=== PATIENT | female | born 1940 | race Caucasian/White ===

== ENCOUNTER 2018-12-30 14:42 | Inpatient (IN) | payer MEDICARE, BC ==
[~2018-12-30] VITALS: Ht 158.8 cm; Wt 44.5 kg
[2018-12-30] MEDS ORDERED: Z GUARD REMEDY PASTE 57 GM TUBE TOP PRN (17:15)
[2018-12-30] MEDS ORDERED: LEVO75TA7 PO (17:18)
[2018-12-30] MEDS ORDERED: HYDR-3980 PO (17:18)
[2018-12-30] MEDS ORDERED: OXYB10TA PO (17:18)
[2018-12-30] MEDS ORDERED: SIMV40TA5 PO (17:18)
[2018-12-30] MEDS ORDERED: LEVO50TA8 PO (17:18)
[2018-12-30] MEDS ORDERED: BENA20TA9 PO (17:18)
--- NOTE | 2018-12-30 17:23 | NUR ---
Patient new admission came around 4pm via ambulance in [facility] with 2 EMT in stable condition. Alert and oriented x3-4 VS BP- 109/69 P-81 R-18. Followed by . SPO2- 100% T- 98.5. DX: S/P left hip fracture left hip hemiartroplasty by MD Pantoja. skin intact. no IV line noted. On regular soft diet. MD Porter and MD Rich made aware. Sustained the fracture in fall. Patient verbalize while chasing her dog. On weight bearing as tolerated. Left hip incision with marcos covered with surgical dressing. not in distress. will continue monitor Addendum: 12/30/18 at 1823 by CARON MONTGOMERY RN RN As per further skin assessment, left hip blister and left sacrum excoriation noted. For wound consult and air mattress for skin intergrity. will continue monitor
[2018-12-30 19:49] VITALS: BP 118/63
[2018-12-30] MEDS ORDERED: ENOX40DI SQ (22:06)
[2018-12-30] MEDS ORDERED: MAGN400O6 PO (22:06)
[2018-12-30] MEDS ORDERED: ZOLP5TAB8 PO (22:07)
[2018-12-30] MEDS ORDERED: NAPH1POW3 PO (22:07)
[2018-12-30] MEDS ORDERED: OXYCODONE HCL 5 MG TABLET PO PRN (22:45)
--- NOTE | 2018-12-30 22:48 | NUR ---
Received pt in bed, AAO x 4 with at bedside. No acute distress noted. Verbally responsive and able to make needs known. Awaiting MD for med recon. Denies pain or discomfort at this time. All safety measures and fall precautions maintained. Call light and all personal belongings within reach. Will continue to monitor.
[2018-12-30] MEDS ORDERED: ZOLPIDEM 5 MG TABLET PO PRN (23:30)
[2018-12-31] MEDS: HYDROCODONE/APAP 10-325 MG TABLET PO PRN ×3 (00:09→14:16)
[2018-12-31 05:11] VITALS: BP 109/52
[2018-12-31] MEDS ORDERED: NEUTRA PHOS PACKET PO SCH ×2 (06:00→14:00)
[2018-12-31] MEDS: LEVOTHYROXINE SODIUM 75 MCG TABLET PO SCH (07:17)
[2018-12-31 07:35] LABS: BASOPHILS % (AUTO) 0.6 % (0.0-2.0); EOSINOPHILS # (AUTO) 0.2 K/uL (0.0-0.7); EOSINOPHILS % (AUTO) 3.9 % (0.0-7.0); HEMATOCRIT 29.1 % (31.2-41.9); HEMOGLOBIN 9.9 g/dL (10.9-14.3); LYMPHOCYTES # (AUTO) 1.2 K/uL (20.0-40.0); LYMPHOCYTES % (AUTO) 19.8 % (20.5-51.5); MEAN CORPUSCULAR HGB CONC 34 g/dL (32.3-35.6); MEAN CORPUSCULAR VOLUME 91.7 fL (75.5-95.3); MONOCYTES # (AUTO) 0.6 K/uL (2.0-10.0); MONOCYTES % (AUTO) 10.8 % (0.0-11.0); NEUTROPHILS # (AUTO) 3.8 K/uL (1.8-8.9); NEUTROPHILS % (AUTO) 64.9 % (38.5-71.5); PLATELET COUNT (AUTO) 182 K/uL (179-408); RED BLOOD CELL COUNT(AUTO) 3.18 MIL/uL (3.63-4.92); WHITE BLOOD COUNT (AUTO) 5.9 K/uL (3.8-11.8)
[2018-12-31 07:50] LABS: CARBON DIOXIDE 31 mmol/L (21-32); CHLORIDE 104 mmol/L (98-107); CHOLESTEROL 63 mg/dL (<200); CREATININE 0.5 mg/dL (0.6-1.3); GLUCOSE 89 mg/dL (74-106); HDL CHOLESTEROL 28 mg/dL (40-60); MAGNESIUM 1.9 mg/dL (1.8-2.4); PHOSPHOROUS 2.3 mg/dL (2.5-4.9); POTASSIUM 3.6 mmol/L (3.5-5.1); TRIGLYCERIDES 67 MG/DL (30-150); UREA NITROGEN, BLOOD 10 mg/dL (7-18)
[2018-12-31 08:05] VITALS: BP 132/63
[2018-12-31] MEDS ORDERED: LEVOTHYROXINE SODIUM 50 MCG TABLET PO SCH (09:00)
[2018-12-31] MEDS ORDERED: ENOXAPARIN SODIUM 40 MG/0.4 ML DISP.SYRIN SQ SCH (09:00)
[2018-12-31] MEDS ORDERED: BENAZEPRIL HCL 20 MG TABLET PO SCH (09:00)
[2018-12-31] MEDS: BENAZEPRIL HCL 10 MG TABLET PO SCH (09:20)
[2018-12-31] MEDS ORDERED: Medication Not On Formulary EA (Oxybutynin Chloride (Oxybutynin Chloride Er) 10 MG) PO SCH (18:00)
[2018-12-31] MEDS: OXYBUTYNIN XL 5 MG TABSR PO SCH (18:26)
[2018-12-31] MEDS: MAGNESIUM HYDROXIDE 30 ML LIQUID UDC PO PRN (18:31)
[2018-12-31 20:25] VITALS: BP 127/63
[2018-12-31] MEDS: ONDANSETRON HCL 4 MG TABLET PO PRN (20:56)
[2018-12-31] MEDS ORDERED: SIMVASTATIN 40 MG TABLET PO SCH (21:00)
--- NOTE | 2018-12-31 21:31 | NUR ---
Received pt resting in bed and requested to go to the bathroom. Assisted to the bathroom using walker, unsteady but tolerated. AAO x4. No acute distress noted. No c/o pain or discomfort. Air mattress in place. Pt complained of nausea, no emesis present. VSS. Notified Dr. Bhardwaj, new order for Zofran 4mg PO Q6H PRN for N/V. Carried out new order. Safety measures maintained. Call light and personal belongings within reach. Will continue to monitor.
[2019-01-01 04:00] VITALS: BP 137/59
[2019-01-01] MEDS: LEVOTHYROXINE SODIUM 50 MCG TABLET PO SCH (06:07)
[2019-01-01 08:00] VITALS: BP 135/80
[2019-01-01] MEDS ORDERED: LEVOTHYROXINE SODIUM 75 MCG TABLET PO SCH (09:00)
[2019-01-01] MEDS: BENAZEPRIL HCL 10 MG TABLET PO SCH (09:33)
--- NOTE | 2019-01-01 10:04 | NUR ---
Received pt in bed. A/Ox4. No acute distress noted. Denies CP or SOB. All due medications given as ordered and tolerated well. On air mattress for skin management. Provided prune juice to pt. No episode of N/V this AM. Safety measures maintained. Call light and all frequently used items in place. Will continue to monitor accordingly.
--- NOTE | 2019-01-01 11:27 | NUR ---
WOUND CARE CONSULT: PT PRESENTS WITH RESOLVED TAPE BLISTERS PROXIMAL TO SURGICAL DRESSING LEFT HIP, PRESENT ON ADMISSION. PT IS AMBULATORY WITH ASSISTANCE AND WALKER AND IS CONTINENT. ALL SKIN PROTECTION RECOMMENDATIONS DISCUSSED WITH NURSING STAFF. WILL SEE PRN. Addendum: 01/01/19 at 1128 by COLT GARZON RN Amended: Links added.
[2019-01-01] MEDS: MAGNESIUM HYDROXIDE 30 ML LIQUID UDC PO PRN (13:25)
[2019-01-01] MEDS: HYDROCODONE/APAP 10-325 MG TABLET PO PRN ×2 (13:25→21:46)
[2019-01-01 16:00] VITALS: BP 116/55
[2019-01-01] MEDS: OXYBUTYNIN XL 5 MG TABSR PO SCH (17:03)
[2019-01-01] MEDS: RIVAROXABAN 10 MG TABLET PO SCH (17:14)
--- NOTE | 2019-01-01 19:32 | NUR ---
End of shift: All due medications administered as ordered and tolerated well. No new skin condition noted. Kept pt. clean and dry. Skin care rendered. On air mattress and SCD pump. Call light and all frequently used items within pt. reach. Will endorse to oncoming shift accordingly.
--- NOTE | 2019-01-01 19:40 | NUR ---
Patient received in bed. AAO x4. Able to make needs known. No sign of acute distress or SOB was noted. On room air. No Complain of pain at this time. Abductor pillow and DVT pump in place. Patient assessed. Skin redness on both heels and a blister on left food were observed. Pictures taken and put in the chart. Applied Mepilex on left foot blister and redness. Safety measures maintained. Fall prevention observed. Bed in low position, brake and alarm on, side rails up x2. Call light and personal belongings within reach. Will continue to monitor.
[2019-01-01 20:00] VITALS: BP 126/54
[2019-01-02] MEDS: LEVOTHYROXINE SODIUM 75 MCG TABLET PO SCH (06:08)
[2019-01-02 06:23] VITALS: BP 118/53
--- NOTE | 2019-01-02 07:44 | NUR ---
End of the shift note Patient was stable throughout the shift and had a good sleep. No sign of acute distress or SOB noted. No Complain of pain. patient assessment done. Assisted to the restroom for using bedside commode. Surgical dressing changed. Medications given as ordered and well tolerated. Keep her clean and dry. Safety measures maintained. All needs anticipated promptly. Fall precaution maintained. Bed in low position, brake and alarm on, side rails up x2. Call light and personal belongings within reach. Continue to monitor and will endorse to the day shift nurse accordingly.
[2019-01-02 08:00] VITALS: BP 124/67
[2019-01-02] MEDS: BENAZEPRIL HCL 10 MG TABLET PO SCH (08:42)
[2019-01-02] MEDS: HYDROCODONE/APAP 10-325 MG TABLET PO PRN (08:43)
--- NOTE | 2019-01-02 09:34 | NUR ---
Received pt in bed. A/Ox4. No acute distress noted. Denies CP or SOB. All due medications given as ordered and tolerated well. On air mattress for skin management. Provided prune juice to pt. Skin care rendered. All pt need attended and met. Pt. with X1 BM this AM. Safety measures maintained. Call light and all frequently used items in place. Will continue to monitor accordingly.
[2019-01-02] MEDS: MAGNESIUM HYDROXIDE 30 ML LIQUID UDC PO PRN (11:57)
--- NOTE | 2019-01-02 12:42 | NUR ---
INTERDISCIPLINARY TEAM CONFERENCE
[2019-01-02 16:33] VITALS: BP 104/61
[2019-01-02] MEDS: OXYBUTYNIN XL 5 MG TABSR PO SCH (17:02)
[2019-01-02] MEDS: RIVAROXABAN 10 MG TABLET PO SCH (17:11)
--- NOTE | 2019-01-02 18:49 | NUR ---
End of shift: All due medications administered as ordered and tolerated well. No new skin condition noted. Kept pt. clean and dry. Encouraged PO fluid intake. Skin care rendered. Participated with PT/OT and tolerated TX well. On air mattress and SCD pump. X2 small BM this shift. at bedside for emotional support.Call light and all frequently used items within pt. reach. Will endorse to oncoming shift accordingly.
[2019-01-02 19:49] VITALS: BP 129/71
--- NOTE | 2019-01-02 20:30 | NUR ---
Received pt in bed, AAO x 4 watching television. No acute distress noted. Verbally responsive and able to make needs known. Denies pain or discomfort at this time. All safety measures and fall precautions maintained. Call light and all personal belongings within reach. Will continue to monitor.
[2019-01-03] MEDS: HYDROCODONE/APAP 10-325 MG TABLET PO PRN ×2 (00:38→08:09)
[2019-01-03 04:39] VITALS: BP 109/62
[2019-01-03] MEDS: LEVOTHYROXINE SODIUM 50 MCG TABLET PO SCH (06:08)
[2019-01-03 07:45] VITALS: BP 117/55
[2019-01-03] MEDS: BENAZEPRIL HCL 10 MG TABLET PO SCH (08:09)
--- NOTE | 2019-01-03 08:42 | NUR ---
Received pt in bed. A/OX4. No acute distress noted. Denies CP or SOB. All due medications given as ordered and tolerated well. On air mattress for skin management. Provided prune juice to pt. Skin care rendered. All pt need attended and met. Kept pt. clean and dry. Safety measures maintained. Call light and all frequently used items in place. Will continue to monitor accordingly.
[2019-01-03] MEDS: MAGNESIUM HYDROXIDE 30 ML LIQUID UDC PO PRN (12:13)
--- NOTE | 2019-01-03 13:36 | NUR ---
INTERDISCIPLINARY TEAM CONFERENCE
[2019-01-03 16:43] VITALS: BP 113/56
[2019-01-03] MEDS: OXYBUTYNIN XL 5 MG TABSR PO SCH (17:32)
[2019-01-03] MEDS: RIVAROXABAN 10 MG TABLET PO SCH (17:33)
--- NOTE | 2019-01-03 18:20 | NUR ---
End of shift: All due medications administered as ordered and tolerated well. No new skin condition noted. Kept pt. clean and dry. Encouraged PO fluid intake. Skin care rendered. Participated with PT/OT and tolerated TX well. On air mattress and SCD pump. X2 small and large BM this shift. and DTR at bedside for emotional support. Call light and all frequently used items within pt. reach. Will endorse to oncoming shift accordingly.
[2019-01-03 19:45] VITALS: BP 104/41
--- NOTE | 2019-01-03 20:26 | NUR ---
Received pt resting in bed. AAO x4. at bedside. No acute distress noted. No c/o pain or discomfort. On air mattress and SCD pump. Abductor pillow in place. Both heels elevated. Turned and repositioned, will continue to do so q2h. Safety measures maintained. Call light and personal belongings within reach. Will continue to monitor.
[2019-01-04 04:00] VITALS: BP 126/47
[2019-01-04] MEDS: LEVOTHYROXINE SODIUM 75 MCG TABLET PO SCH (06:30)
--- NOTE | 2019-01-04 06:44 | NUR ---
Pt slept intermittently at night. Assisted to the bedside commode x5 t/o the shift, had 2 small BM. VSS. All needs attended to promptly. Will endorse to oncoming shift. Continue to monitor.
[2019-01-04 08:44] VITALS: BP 108/55
[2019-01-04] MEDS: BENAZEPRIL HCL 10 MG TABLET PO SCH (08:45)
[2019-01-04] MEDS: HYDROCODONE/APAP 10-325 MG TABLET PO PRN ×2 (10:50→20:13)
[2019-01-04] MEDS: OXYBUTYNIN XL 5 MG TABSR PO SCH (17:18)
[2019-01-04] MEDS: RIVAROXABAN 10 MG TABLET PO SCH (17:20)
[2019-01-04 19:20] VITALS: BP 122/56
--- NOTE | 2019-01-04 19:20 | NUR ---
Received pt resting in bed. Alert and oriented x 4. No SOB or distress noted at this time. Pain noted upon assessment. Will medicate. Patient resting in bed watch TV. Assisted with evening ADLs. Safety measures maintained. Side rails up bilaterally. Call light and personal belongings within reach. Will continue to monitor.
[2019-01-05 05:00] VITALS: BP 136/47
[2019-01-05] MEDS: LEVOTHYROXINE SODIUM 50 MCG TABLET PO SCH (06:00)
--- NOTE | 2019-01-05 06:38 | NUR ---
Patient slept well during shift. No C/O distress or SOB on shift. All due medications given-tolerated well. Assisted patient to bathroom x3. SCD pumps in place for DVT prophylaxis. Side rails up bilaterally for safety. Call light and frequently used items within reach. Will endorse to oncoming shift accordingly.
[2019-01-05] MEDS: BENAZEPRIL HCL 10 MG TABLET PO SCH (08:04)
[2019-01-05 08:07] VITALS: BP 125/52
--- NOTE | 2019-01-05 08:27 | NUR ---
Received pt in bed. A/OX4. No acute distress noted. Denies CP or SOB. All due medications given as ordered and tolerated well. On air mattress for skin management. Skin care rendered. Lt. hip boarder gauze dressing C/D/I. All pt needs attended and met. Kept pt. clean and dry. Safety measures maintained. Call light and all frequently used items in place. Will continue to monitor accordingly.
[2019-01-05 08:28] LABS: BASOPHILS # (AUTO) 0.1 K/uL (0.0-8.0); BASOPHILS % (AUTO) 0.8 % (0.0-2.0); EOSINOPHILS # (AUTO) 0.2 K/uL (0.0-0.7); EOSINOPHILS % (AUTO) 2.7 % (0.0-7.0); HEMATOCRIT 28.7 % (31.2-41.9); HEMOGLOBIN 9.6 g/dL (10.9-14.3); MEAN CORPUSCULAR HEMOGLOBIN 31.1 uug (24.7-32.8); MEAN CORPUSCULAR HGB CONC 33 g/dL (32.3-35.6); MEAN CORPUSCULAR VOLUME 93.2 fL (75.5-95.3); MONOCYTES # (AUTO) 0.5 K/uL (2.0-10.0); MONOCYTES % (AUTO) 6.7 % (0.0-11.0); NEUTROPHILS # (AUTO) 5.6 K/uL (1.8-8.9); NEUTROPHILS % (AUTO) 75.8 % (38.5-71.5); PLATELET COUNT (AUTO) 317 K/uL (179-408); RED BLOOD CELL COUNT(AUTO) 3.08 MIL/uL (3.63-4.92); WHITE BLOOD COUNT (AUTO) 7.3 K/uL (3.8-11.8)
[2019-01-05 09:03] LABS: ALANINE AMINOTRANSFERASE 31 U/L (14-59); ALKALINE PHOSPHATASE 70 U/L (50-136); ASPARTATE AMINOTRANSFERASE 25 U/L (15-37); BILIRUBIN,TOTAL 0.5 mg/dL (0.2-1.0); CARBON DIOXIDE 32 mmol/L (21-32); CHLORIDE 105 mmol/L (98-107); CREATININE 0.5 mg/dL (0.6-1.3); GLUCOSE 101 mg/dL (74-106); MAGNESIUM 2.2 mg/dL (1.8-2.4); PHOSPHOROUS 2.6 mg/dL (2.5-4.9); POTASSIUM 3.8 mmol/L (3.5-5.1); TOTAL PROTEIN, SERUM 5.3 g/dL (6.4-8.2); UREA NITROGEN, BLOOD 9 mg/dL (7-18)
[2019-01-05 09:29] LABS: THYROID STIMULATING HORMONE 2.156 mIU/mL (0.358-3.740)
[2019-01-05] MEDS: HYDROCODONE/APAP 10-325 MG TABLET PO PRN ×2 (10:09→22:44)
[2019-01-05 16:16] VITALS: BP 115/51
[2019-01-05] MEDS: OXYBUTYNIN XL 5 MG TABSR PO SCH (17:03)
[2019-01-05] MEDS: RIVAROXABAN 10 MG TABLET PO SCH (17:04)
--- NOTE | 2019-01-05 18:39 | NUR ---
End of shift: All due medications administered as ordered and tolerated well. No new skin condition noted. Kept pt. clean and dry. Encouraged PO fluid intake. Skin care rendered. Participated with PT/OT and tolerated TX well. On air mattress and SCD pump. at bedside for emotional support. Call light and all frequently used items within pt. reach. Will endorse to oncoming shift accordingly.
[2019-01-05 19:42] VITALS: BP 108/59
--- NOTE | 2019-01-05 19:49 | NUR ---
Patient received in bed reading a book. Alert and oriented x 4. No SOB or distress noted at this time. No pain noted upon assessment. Assisted with evening ADLs. Side rails up bilaterally for safety. Call light and personal belongings within reach. Will continue to monitor.
[2019-01-05] MEDS: ACETAMINOPHEN 325 MG TABLET PO PRN (20:30)
[2019-01-06 05:18] VITALS: BP 132/55
[2019-01-06] MEDS: LEVOTHYROXINE SODIUM 75 MCG TABLET PO SCH (06:03)
--- NOTE | 2019-01-06 06:45 | NUR ---
No significant change overnight. Patient slept well during shift. All due medications given-tolerated well. Assisted patient to bathroom x2. SCD pumps in place for DVT prophylaxis. Side rails up bilaterally for safety. Call light and frequently used items within reach. Will endorse to oncoming shift accordingly.
[2019-01-06 08:00] VITALS: BP 128/40
[2019-01-06] MEDS: BENAZEPRIL HCL 10 MG TABLET PO SCH (08:06)
--- NOTE | 2019-01-06 09:12 | NUR ---
Received pt in bed. A/OX4. No acute distress noted. Denies CP or SOB. All due medications given as ordered and tolerated well. On air mattress for skin management. Skin care rendered. Lt. hip boarder gauze dressing C/D/I. Pt. wearing bilateral hearing aid. All pt needs attended and met. Kept pt. clean and dry. Safety measures maintained. Call light and all frequently used items in place. Will continue to monitor accordingly.
[2019-01-06] MEDS: OXYBUTYNIN XL 5 MG TABSR PO SCH (17:02)
[2019-01-06] MEDS: RIVAROXABAN 10 MG TABLET PO SCH (17:03)
[2019-01-06 17:04] VITALS: BP 142/63
[2019-01-06 18:23] VITALS: BP 130/68
--- NOTE | 2019-01-06 18:26 | NUR ---
End of shift: All due medications administered as ordered and tolerated well. No new skin condition noted. Kept pt. clean and dry. Pt. transferred to # [phone] per pt. request. Skin care rendered. Participated with PT/OT and tolerated TX well. On air mattress and SCD pump. Call light and all frequently used items within pt. reach. Will endorse to oncoming shift accordingly.
[2019-01-06 20:35] VITALS: BP 132/66
[2019-01-07 05:06] VITALS: BP 137/57
--- NOTE | 2019-01-07 05:22 | NUR ---
aaox4 continent of bowel and bladder. needs attended. VSS. denies any pain kept comfortable. will monitor patient. slept well. no acute distress noted. In good spirits.
[2019-01-07] MEDS: LEVOTHYROXINE SODIUM 50 MCG TABLET PO SCH (06:42)
[2019-01-07] MEDS: BENAZEPRIL HCL 10 MG TABLET PO SCH (08:08)
[2019-01-07] MEDS: HYDROCODONE/APAP 10-325 MG TABLET PO PRN (08:58)
[2019-01-07 09:48] VITALS: BP 128/67
--- NOTE | 2019-01-07 11:09 | NUR ---
Received pt in bed. A/OX4. No acute distress noted. Denies CP or SOB. All due medications given as ordered and tolerated well. On air mattress for skin management. Skin care rendered. All pt needs attended and met. Kept pt. clean and dry. Safety measures maintained. Call light and all frequently used items in place. Will continue to monitor accordingly.
[2019-01-07 16:28] VITALS: BP 111/59
[2019-01-07] MEDS: OXYBUTYNIN XL 5 MG TABSR PO SCH (17:01)
[2019-01-07] MEDS: RIVAROXABAN 10 MG TABLET PO SCH (17:02)
--- NOTE | 2019-01-07 18:10 | NUR ---
End of shift: All due medications administered as ordered and tolerated well. No new skin condition noted. Kept pt. clean and dry. Pt. showered today. Change lt. hip dressing PRN soiled. Participated with PT/OT and tolerated TX well. On air mattress and SCD pump. Call light and all frequently used items within pt. reach. Will endorse to oncoming shift accordingly.
[2019-01-07 19:30] VITALS: BP 106/64
--- NOTE | 2019-01-07 19:30 | NUR ---
Received pt resting in bed. Alert and oriented x 4. No SOB or pain noted at this time. Patient resting in bed watch TV. Safety measures maintained. Side rails up bilaterally. Call light and personal belongings within reach. Will continue to monitor.
[2019-01-08 05:17] VITALS: BP 117/64
[2019-01-08] MEDS: LEVOTHYROXINE SODIUM 75 MCG TABLET PO SCH (06:11)
--- NOTE | 2019-01-08 06:33 | NUR ---
No significant change overnight. Patient slept intermittently during shift. All due medications given-tolerated well. Assisted patient to bathroom x3. SCD pumps in place for DVT prophylaxis. Side rails up bilaterally for safety. Call light and frequently used items within reach. Will endorse to oncoming shift accordingly.
[2019-01-08 08:00] VITALS: BP 130/53
[2019-01-08] MEDS: BENAZEPRIL HCL 10 MG TABLET PO SCH (08:31)
[2019-01-08] MEDS: HYDROCODONE/APAP 10-325 MG TABLET PO PRN (08:32)
--- NOTE | 2019-01-08 09:49 | NUR ---
Patient noted sitting up in bed, complaints of pain in left hip, [place] given for pain, no signs of distress noted, call light in reach, bed locked and in lowest positon, took all AM medications, all needs met at this time
[2019-01-08 16:25] VITALS: BP 115/57
[2019-01-08] MEDS: OXYBUTYNIN XL 5 MG TABSR PO SCH (17:11)
[2019-01-08] MEDS: RIVAROXABAN 10 MG TABLET PO SCH (17:14)
--- NOTE | 2019-01-08 18:23 | NUR ---
No signs distress noted this shift, no changes noted, patient assisted to restroom at this time, no complaints of pain at this time
[2019-01-08 19:25] VITALS: BP 144/61
--- NOTE | 2019-01-08 21:11 | NUR ---
Patient recieved in bed talking to family member on the phone. Alert and oriented x 4. No SOB or pain noted at this time. SCD pump machine changed because it did not seem to be functioning. Safety measures maintained. Side rails up bilaterally. Call light and personal belongings within reach. Will continue to monitor.
[2019-01-09 04:45] VITALS: BP 135/52
[2019-01-09] MEDS: HYDROCODONE/APAP 10-325 MG TABLET PO PRN (06:05)
[2019-01-09] MEDS: LEVOTHYROXINE SODIUM 50 MCG TABLET PO SCH (06:05)
--- NOTE | 2019-01-09 06:38 | NUR ---
Patient slept intermittently during shift. All due medications given-tolerated well. [place] given for pain management. Assisted patient to bathroom x5. SCD pumps in place for DVT prophylaxis. Side rails up bilaterally for safety. Call light and frequently used items within reach. Will endorse to oncoming shift accordingly.
--- NOTE | 2019-01-09 07:59 | NUR ---
Patient noted sitting up in bed, no complaints of pain at this time, no signs of distress noted, call light in reach, bed locked and in lowest positon, took all AM medications, all needs met at this time
[2019-01-09 08:00] VITALS: BP 128/60
[2019-01-09] MEDS: BENAZEPRIL HCL 10 MG TABLET PO SCH (08:49)
[2019-01-09 16:00] VITALS: BP 109/61
[2019-01-09] MEDS: OXYBUTYNIN XL 5 MG TABSR PO SCH (17:15)
[2019-01-09] MEDS: RIVAROXABAN 10 MG TABLET PO SCH (17:18)
[2019-01-09 22:32] VITALS: BP 128/67
[2019-01-10] MEDS: LEVOTHYROXINE SODIUM 75 MCG TABLET PO SCH (06:20)
[2019-01-10 06:34] VITALS: BP 148/70
--- NOTE | 2019-01-10 06:50 | NUR ---
awake alert and oriented x4 OOB to the BR with walker. voiding well. BM noted this shift. needs attended. kept comfortable. no acute distress noted. will monitor patient. VSS. fall precautions maintained. siderails up for safety.
--- NOTE | 2019-01-10 07:15 | NUR ---
Received patient awake on bed, lying on a high lee's with No SOB or distress. Denies pain or any discomforts at this time. safety precautions initiated. Informed of the hourly rounding. call light and telephone within reach. Will continue to monitor.
[2019-01-10 08:00] VITALS: BP 101/68
[2019-01-10] MEDS: BENAZEPRIL HCL 10 MG TABLET PO SCH (08:30)
[2019-01-10] MEDS: HYDROCODONE/APAP 10-325 MG TABLET PO PRN (08:31)
--- NOTE | 2019-01-10 13:25 | NUR ---
INTERDISCIPLINARY TEAM CONFERENCE
[2019-01-10 15:04] VITALS: BP 109/64
--- NOTE | 2019-01-10 15:16 | NUR ---
Patient alert and oriented, no acute changes noted. no SOB or distress. denies any pain or discomforts at this time. all due medications were given, tolerated well. Safety precautions observed at all times. Hourly rounding done. Will continue to monitor.
--- NOTE | 2019-01-10 16:00 | NUR ---
Received patient, awake, alert x4. Denies any pain. With at beside. Not in any form of distress. Air mattress in place.
[2019-01-10] MEDS: OXYBUTYNIN XL 5 MG TABSR PO SCH (17:11)
[2019-01-10] MEDS: RIVAROXABAN 10 MG TABLET PO SCH (17:13)
--- NOTE | 2019-01-10 18:30 | NUR ---
Was stable thought the shift, tolerated medications well. No pain at the moment. SCD pumps in place.
[2019-01-10 20:00] VITALS: BP 121/60
[2019-01-11 04:00] VITALS: BP 120/62
[2019-01-11] MEDS: ONDANSETRON HCL 4 MG TABLET PO PRN (05:23)
[2019-01-11] MEDS: LEVOTHYROXINE SODIUM 50 MCG TABLET PO SCH (06:34)
[2019-01-11] MEDS: HYDROCODONE/APAP 10-325 MG TABLET PO PRN (06:46)
[2019-01-11 07:00] LABS: BASOPHILS % (AUTO) 0.7 % (0.0-2.0); EOSINOPHILS # (AUTO) 0.1 K/uL (0.0-0.7); EOSINOPHILS % (AUTO) 2.3 % (0.0-7.0); HEMATOCRIT 29.5 % (31.2-41.9); HEMOGLOBIN 9.8 g/dL (10.9-14.3); LYMPHOCYTES # (AUTO) 1.1 K/uL (20.0-40.0); LYMPHOCYTES % (AUTO) 16.7 % (20.5-51.5); MEAN CORPUSCULAR HEMOGLOBIN 31.1 uug (24.7-32.8); MEAN CORPUSCULAR HGB CONC 33 g/dL (32.3-35.6); MEAN CORPUSCULAR VOLUME 93.4 fL (75.5-95.3); MONOCYTES # (AUTO) 0.6 K/uL (2.0-10.0); MONOCYTES % (AUTO) 9.9 % (0.0-11.0); NEUTROPHILS # (AUTO) 4.5 K/uL (1.8-8.9); NEUTROPHILS % (AUTO) 70.4 % (38.5-71.5); PLATELET COUNT (AUTO) 371 K/uL (179-408); RED BLOOD CELL COUNT(AUTO) 3.16 MIL/uL (3.63-4.92); WHITE BLOOD COUNT (AUTO) 6.4 K/uL (3.8-11.8)
[2019-01-11 07:17] LABS: CARBON DIOXIDE 29 mmol/L (21-32); CHLORIDE 104 mmol/L (98-107); CREATININE 0.6 mg/dL (0.6-1.3); GLUCOSE 96 mg/dL (74-106); PHOSPHOROUS 3.2 mg/dL (2.5-4.9); POTASSIUM 3.6 mmol/L (3.5-5.1); UREA NITROGEN, BLOOD 16 mg/dL (7-18)
[2019-01-11] MEDS: BENAZEPRIL HCL 10 MG TABLET PO SCH (08:14)
[2019-01-11 08:49] VITALS: BP 133/68
--- NOTE | 2019-01-11 13:56 | NUR ---
Patient continue on therapy for ambulation, ADL and transfer ability. Continue on pain management if needed. not in distress. no complaint voiced. will continue monitor
[2019-01-11] MEDS: OXYBUTYNIN XL 5 MG TABSR PO SCH (17:03)
[2019-01-11] MEDS: RIVAROXABAN 10 MG TABLET PO SCH (17:06)
[2019-01-11 20:56] VITALS: BP 116/53
--- NOTE | 2019-01-11 22:37 | NUR ---
Received pt in bed, AAO x 4 reading her book. No acute distress noted. Verbally responsive and able to make needs known. Denies pain or discomfort at this time. All safety measures and fall precautions maintained. Assisted to restroom x 1 using walker and standby assistance, noted with steady gait. Assisted back into bed. Call light and all personal belongings within reach. Will continue to monitor.
[2019-01-12 04:45] VITALS: BP 122/61
[2019-01-12] MEDS: LEVOTHYROXINE SODIUM 75 MCG TABLET PO SCH (06:07)
[2019-01-12 07:00] VITALS: BP 127/53
[2019-01-12] MEDS: BENAZEPRIL HCL 10 MG TABLET PO SCH (08:20)
[2019-01-12] MEDS: HYDROCODONE/APAP 10-325 MG TABLET PO PRN ×3 (13:14→14:37)
[2019-01-12 16:02] VITALS: BP 141/73
[2019-01-12] MEDS: RIVAROXABAN 10 MG TABLET PO SCH (17:29)
[2019-01-12] MEDS: OXYBUTYNIN XL 5 MG TABSR PO SCH (17:29)
--- NOTE | 2019-01-12 19:45 | NUR ---
RECEIVED PATIENT AWAKE IN BED WATCHING TV. A/O X4. VERY PLEASANT WHEN APPROACHED. DENIES ANY PAIN AT THIS TIME. NO RESP. DISTRESS NOTED. ABDUCTION PILLOW IN PLACE. SWELLING NOTED TO LEFT FOOT. NEURO-VASCULAR CHECKS WNL. SENSATION PRESENT. DRESSING NOTED TO LEFT HIP, C/D/I. BED ALARM ON. CALL LIGHT IN REACH. ALL NEEDS ATTENDED. WILL CONTINUE TO MONITOR AND ASSESS.
[2019-01-12 20:25] VITALS: BP 127/58
[2019-01-13] MEDS: ACETAMINOPHEN 325 MG TABLET PO PRN ×3 (01:36→14:38)
[2019-01-13 05:30] VITALS: BP_SYST 109; BP_SYST 144; BP_DIAS 57; BP_DIAS 74
[2019-01-13 05:35] VITALS: BP 109/57
[2019-01-13] MEDS: LEVOTHYROXINE SODIUM 50 MCG TABLET PO SCH (06:08)
--- NOTE | 2019-01-13 06:42 | NUR ---
PATIENT ASLEEP IN BED. SLEPT WELL THROUGHOUT THE NIGHT. VS WNL. CALL LIGHT IN REACH. ALL NEEDS ATTENDED. WILL CONTINUE TO MONITOR AND ASSESS.
[2019-01-13] MEDS: BENAZEPRIL HCL 10 MG TABLET PO SCH (07:59)
[2019-01-13 08:00] VITALS: BP_SYST 135; BP_SYST 137; BP_DIAS 43; BP_DIAS 63
--- NOTE | 2019-01-13 10:03 | NUR ---
Patient noted resting in bed, no complaints of pain, assisted to restroom and back to wheelchair for breakfast, no signs of distress noted, call light in reach, bed locked and in lowest positon, all needs met at this time.
[2019-01-13 16:00] VITALS: BP 119/65
--- NOTE | 2019-01-13 16:03 | NUR ---
Social work assessment: cylinder worker met with patient at bedside and introduced self, role, and purpose of visit. Patient was accompanied by her friend, Martha. Patient consented to have Martha present during social work assessment. Patient states she is in the hospital because of a hip replacement. Patient appeared to be in good spirits and was smiling. Patient is AxOx4 and presents with euthymic mood and congruent affect. Patient states she is supported by her , Viraj [[phone]], and her family. Patient at the time doesn't feel she needs any emotional or supportive counseling resources. Patient states that when she is discharged she will go home with home health. Patient did state that her has a question about resources and asked if social group worker could call him. After visit, social group worker called and left a voicemail for patient and requested a return call. cylinder worker will continue to remain available to patient and patient as needed.
[2019-01-13] MEDS: OXYBUTYNIN XL 5 MG TABSR PO SCH (17:10)
[2019-01-13] MEDS: RIVAROXABAN 10 MG TABLET PO SCH (17:10)
[2019-01-13 19:25] VITALS: BP 128/50
--- NOTE | 2019-01-13 19:25 | NUR ---
Patient received in bed-resting. A/O x4. No C/O pain or SOB at this time. Dressing in left hip and left foot present, C/D/I. Bed alarm intact. Assisted with evening ADLs. Call light and frequently used items within reach. Will continue to monitor.
[2019-01-14 04:43] VITALS: BP 120/56
[2019-01-14] MEDS: LEVOTHYROXINE SODIUM 75 MCG TABLET PO SCH (06:13)
--- NOTE | 2019-01-14 06:44 | NUR ---
Patient slept on and off during shift. All due medications given-tolerated well. Assisted patient to bathroom x5. SCD pumps in place for DVT prophylaxis. X-ray of left hip for this morning scheduled at 9 AM. Side rails up bilaterally for safety. Call light and frequently used items within reach. Will endorse to oncoming shift accordingly.
[2019-01-14 08:00] VITALS: BP 119/62
[2019-01-14] MEDS: BENAZEPRIL HCL 10 MG TABLET PO SCH (08:57)
--- NOTE | 2019-01-14 09:30 | NUR ---
Patient awake, alert, up on the wheelchair, not in any form of acute distress. She denies any pain or discomfort at this time. Assisted withi her needs. Call light and frequently used items placed within reach.
[2019-01-14 16:00] VITALS: BP 116/48
[2019-01-14] MEDS: RIVAROXABAN 10 MG TABLET PO SCH (17:01)
[2019-01-14] MEDS: OXYBUTYNIN XL 5 MG TABSR PO SCH (17:02)
[2019-01-14 20:00] VITALS: BP 122/60
[2019-01-14] MEDS: ACETAMINOPHEN 325 MG TABLET PO PRN (21:59)
--- NOTE | 2019-01-14 22:55 | NUR ---
Patient noted with redness around incision site. No drainage noted. No bleeding. No c/o pain and discomfort. No acute distress. Kept clean and dry. Dr. Bhardwaj made aware. NNO at this time. Patient has f/u appointment with Ortho in AM. Dr. Bhardwaj aware.
[2019-01-15 04:00] VITALS: BP 126/66
[2019-01-15] MEDS: LEVOTHYROXINE SODIUM 50 MCG TABLET PO SCH (06:06)
[2019-01-15 08:15] VITALS: BP 132/55
[2019-01-15 08:20] VITALS: BP 132/55
[2019-01-15] MEDS: BENAZEPRIL HCL 10 MG TABLET PO SCH (08:20)
--- NOTE | 2019-01-15 09:00 | NUR ---
Received pt in bed. A/OX4. No acute distress noted. Denies CP or SOB. All due medications given as ordered and tolerated well. On air mattress for skin management. Skin care rendered. Lt. hip boarder gauze dressing C/D/I. All pt needs attended and met. Scheduled for D/C home today with [facility] to provide PT/OT/RN. Discharge orders received from Dr. Porter. Kept pt. clean and dry. Safety measures maintained. Call light and all frequently used items in place. Will continue to monitor accordingly.
--- NOTE | 2019-01-15 11:25 | NUR ---
Discharge Note: Routine rds with pt. remain cooperative. A/OX4 with capacity to decisions. Lungs sounds clear to auscultation. Normal heart sounds. Bowel sounds present in all quadrants with X1 BM this AM. All belongings prepared and accountable for. Pt. aware of appointment with Dr. Fink today. LT hip XR given to pt. and placed in discharge packet. Pt. teaching provided with no further question from pt. Pt. verbalized understanding of discharge instruction. Discharge papers signed by pt. Aaliyah Castle on-site, provided report to receiving staff with no further question. Pt. left via gurney at 1040 d/c to home with [facility] to provide PT/OT/RN services.
== END 2019-01-15 10:40 | disposition home health service (06) | DRG 559 ==
LOC: SA1 16:23
PROVIDERS: ADMIT Physical Medicine & Rehabilitation Pain Medicine; ATTEND Physical Medicine & Rehabilitation Pain Medicine
DX: Z47.1 Aftercare following joint replacement surgery (principal); E43 Unspecified severe protein-calorie malnutrition; E78.5 Hyperlipidemia, unspecified; I11.0 Hypertensive heart disease with heart failure; I25.10 Atherosclerotic heart disease of native coronary artery without angina pectoris; I50.9 Heart failure, unspecified; N32.81 Overactive bladder; Z91.81 History of falling; R26.9 Unspecified abnormalities of gait and mobility; D64.9 Anemia, unspecified; E03.9 Hypothyroidism, unspecified; E83.39 Other disorders of phosphorus metabolism; I25.2 Old myocardial infarction; K59.00 Constipation, unspecified; Z95.5 Presence of coronary angioplasty implant and graft; Z88.5 Allergy status to narcotic agent; Z88.0 Allergy status to penicillin; I34.0 Nonrheumatic mitral (valve) insufficiency
CPT/HCPCS: 36415; 73502; 82652; 83735; 84100; 84443; 85025; 92526; 92610; 97110; 97112; 97116; 97530; 97535; A4663; J1650; Q0162